=== PATIENT | male | born 1995 | race Hispanic/Latino ===

== ENCOUNTER 2018-09-25 08:32 | Emergency (ER) | payer BC ==
[2018-09-25 08:37] VITALS: RESP 18; BMI 24.3
--- NOTE | 2018-09-25 08:59 | ED PDOC ---
HPI: General Adult Additional Complaint(s): This is 23 y/o male with no significant PMH comes to the ED c/o 1 day history of injured tongue. As per patient, he was hit on chin in basketball game last nigh and bit his tongue. He bled a lot overnight but stopped since morning, still c/o 8/10 pain, motrin 400mg helped last night, patient tried to eat this morning but pain got worse and couldnt eat. Denies any fever, SOB, dizziness or chest pain. PMH: Denies PSH: Denies Allg: NKDA Meds: None SH: Social alcohol use only FH: Denies ROS: Unremarkable except HPI <Alem Golden - Last Filed: 09/25/18 09:19> <Galen So - Last Filed: 09/25/18 09:56> Time Seen by Provider: 09/25/18 08:42 Chief Complaint (Nursing): ENT Problem Supervising Attending Note - Supervising Attending Note The Documented history was done by the: Physician Gum Rolling Machine Tender The documented physical exam was done by the: Physician Gum Rolling Machine Tender - Attestation: I have personally seen and examined this patient.: Yes I have fully participated in the care of the patient.: Yes I have reviewed all pertinent clinical information, including history, physical exam and plan: Yes - Notes: Notes:: Tongue injury. No head injury or loose teeth. <Galen So - Last Filed: 09/25/18 09:56> Past Medical History Vital Signs: Last Vital Signs Temp 97 F L 09/25/18 08:36 Pulse 75 09/25/18 08:36 Resp 18 09/25/18 08:36 BP 123/71 09/25/18 08:36 Pulse Ox 96 09/25/18 08:36 - Medical History PMH: Asthma Denies: Chronic Kidney Disease - Family History Family History: States: No Known Family Hx <Alem Golden - Last Filed: 09/25/18 09:19> Vital Signs: Last Vital Signs Temp 97 F L 09/25/18 08:36 Pulse 75 09/25/18 08:36 Resp 18 09/25/18 08:36 BP 123/71 09/25/18 08:36 Pulse Ox 96 09/25/18 09:19 <Galen So - Last Filed: 09/25/18 09:56> - Home Medications Home Medications: Ambulatory Orders Medication Instructions Recorded Acetaminophen [Tylenol] 650 mg PO TID PRN 7 Days capsule 09/25/18 Ibuprofen [Motrin] 600 mg PO TID 7 Days tab 09/25/18 - Allergies Allergies/Adverse Reactions: Allergies Allergy/AdvReac Type Severity Reaction Status Date / Time No Known Allergies Allergy Verified 09/25/18 08:44 Physical Exam - Physical Exam Appears: Positive for: Well, No Acute Distress Head Exam: Positive for: NORMAL INSPECTION Skin: Positive for: Normal Color, Warm, Dry Eye Exam: Positive for: Normal appearance, EOMI, PERRL ENT: Positive for: Normal ENT Inspection, Other (Small abrasion on mid tongue with small hemartoma (No active bleeding), no abrasion on posterior tongue noted, Normal tongue movement) Neck: Positive for: Normal, Painless ROM Cardiovascular/Chest: Positive for: Regular Rate, Rhythm Respiratory: Positive for: Normal Breath Sounds. Negative for: Decreased Breath Sounds, Accessory Muscle Use, Crackles, Rales, Wheezing Gastrointestinal/Abdominal: Positive for: Normal Exam, Soft. Negative for: Tenderness Neurologic/Psych: Positive for: Alert, Oriented. Negative for: Motor/Sensory Deficits <Alem Golden - Last Filed: 09/25/18 09:19> - Physical Exam ENT: Positive for: Other. Negative for: Nasal Congestion <Galen So - Last Filed: 09/25/18 09:56> - ECG O2 Sat by Pulse Oximetry: 96 - Progress ED Course And Treament: A/P: 23 y/o male with tongue injury, bit his tongue/bleeding/pain for one day. - Ibuprofen - Tdap - D/c home with instructions to c/w Ibuprofen 600mg Q6H PRN and follow up with dentist in a week - Patient has dental appt next week Case discussed with Dr. So <Alem Golden - Last Filed: 09/25/18 09:19> - ECG Pulse Ox Interpretation: Normal - Progress ED Course And Treament: 955: Stable. Has dental appt next week. AAOx3. Fu with pcp. <Galen So - Last Filed: 09/25/18 09:56> Medical Decision Making Medical Decision Making: tongue injury/ bit his tongue <Alem Golden - Last Filed: 09/25/18 09:19> Disposition - Patient ED Disposition Is Patient to be Admitted: No - Disposition Disposition: Routine/Home Disposition Time: 09:18 <Alem Golden - Last Filed: 09/25/18 09:19> <Galen So - Last Filed: 09/25/18 09:56> - Clinical Impression Clinical Impression: Tongue injury - Disposition Referrals: [facility] [Outside] Lopez Iniguez MD [Staff Provider] - 09/28/18 Condition: FAIR Additional Instructions: Return if not better in 3 days. Prescriptions: Acetaminophen [Tylenol] 650 mg PO TID PRN 7 Days capsule PRN Reason: Pain, Moderate (4-7) Ibuprofen [Motrin] 600 mg PO TID 7 Days tab Instructions: How to Care for Your Mouth and Teeth Forms: [facility] ([place]), [facility] ED School/Work Excuse
[2018-09-25] MEDS ORDERED: Tdap Vaccine 0.5 ml Vial (10-64 yrs) IM ONE ×2 (09:05→09:52)
[2018-09-25 10:04] VITALS: BP 103/62; PULSE 62; TEMP 98; O2SAT 100
== END 2018-09-25 10:15 | disposition home or self-care (01) ==
LOC: H.ER 08:32
DX: S01.552A Open bite of oral cavity, initial encounter (principal); W22.8XXA Striking against or struck by other objects, initial encounter; Y92.310 Basketball court as the place of occurrence of the external cause